=== PATIENT | female | born 1995 | race Hispanic/Latino ===

== ENCOUNTER 2019-12-11 04:30 | Emergency (ER) | payer MEDICAID ==
[2019-12-11] MEDS ORDERED: Lidocaine 1% (PF) 30 ML VIAL ONE (04:42)
[2019-12-11] MEDS ORDERED: Mag-Al 1200 mg/1200 mg/30 ML UDCUP ONE (04:42)
[2019-12-11 05:04] LABS: #Basophils 0.1 thou/uL (0.0-0.2); #Eosinphils 0.1 thou/uL (0.0-0.7); #Lymphocytes 2.1 thou/uL (1.20-3.40); #Monocytes 0.6 thou/uL (0.11-0.59); #Neutrophils 6.9 thou/uL (1.40-6.50); %Basophils 0.8 % (0.0-1.0); %Eosinophils 0.9 % (0.0-10.0); %Lymphocytes 21.7 % (21.0-51.0); %Monocytes 6.4 % (0.0-10.0); %Neutrophils 70.2 % (42.0-75.0); Hemoglobin 11.8 g/dL (12.0-16.0); Mean Corpuscular HGB CONC 31.7 g/dL (32.0-36.0); Mean Platelet Volume 9.7 fL (7.4-10.4); Platelet Count 273 thou/uL (130-400); RBC Distribution Width 17.3 % (11.5-14.5); White Blood Cell (WBC) Count 9.8 thou/uL (4.8-10.8)
[2019-12-11 05:24] LABS: ALT (SGPT) 21 U/L (8-55); AST (SGOT) 31 U/L (5-34); Alkaline Phosphatase 131 U/L (40-110); Anion Gap 16 mmol/L (10-20); BUN (Urea Nitrogen) 17 mg/dL (7.0-18.7); Bilirubin, Total 0.4 mg/dL (0.2-1.2); Calc. Creatinine Clearance 0 mL/min (70-130); Calcium 8.8 mg/dL (7.8-10.44); Carbon Dioxide 21 mmol/L (22-29); Chloride 106 mmol/L (98-107); Estimated GFR-MDRD Greater than 90; Globulin 2.9 g/dL (2.4-3.5); Glucose 106 mg/dL (70-105); Lipase 26 U/L (8-78); Potassium 3.1 mmol/L (3.5-5.1); Protein, Total 6.9 g/dL (6.0-8.3); Sodium 140 mmol/L (136-145)
--- NOTE | 2019-12-11 08:58 | RAD ---
PORTABLE CHEST: HISTORY: Chest pain. FINDINGS: The lungs are clear. No evidence of pneumothorax or infiltrate. Heart and mediastinum unremarkable. IMPRESSION: No acute findings. POS: AGW
--- NOTE | 2019-12-11 11:05 | ULT ---
PRELIMINARY REPORT/[facility]/AFTER HOURS PROCEDURE EXAM: US Abdomen Limited, Right Upper Quadrant. CLINICAL HISTORY: HX: EPIGASTRIC PAIN. TECHNIQUE: Real-time ultrasound of the right upper quadrant with image documentation. COMPARISON: None provided. FINDINGS: LIVER: Unremarkable. GALLBLADDER: Cholelithiasis is noted with gallbladder sludge. No wall thickening. No pericholecystic fluid. COMMON BILE DUCT: No dilation. Measures 4.4 mm PANCREAS: Obscured by overlying bowel gas. RIGHT KIDNEY: Unremarkable. No hydronephrosis. Measures 9.2 cm IMPRESSION: Cholelithiasis and sludge. The patient demonstrated a positive sonographic Hernandez sign however there is no evidence for wall thickening or pericholecystic fluid. ELECTRONICALLY SIGNED BY: Meir Quinn MD Dec 11, 2019 5:50:56 AM CDT This report is intended for review by the ordering physician only, in accordance of law. If you recei ve this report in error, please call [facility] at [phone]. FINAL REPORT RIGHT UPPER QUADRANT ULTRASOUND: FINDINGS: Cholelithiasis and gallbladder sludge is noted. I am in agreement with the preliminary report. POS: AGW
== END 2019-12-11 06:22 | disposition home or self-care (01) ==
LOC: ERS 04:30
DX: O99.63 Diseases of the digestive system complicating the puerperium (principal); K80.20 Calculus of gallbladder without cholecystitis without obstruction
CPT/HCPCS: 36415; 71045; 76705; 80053; 83690; 85025; 93005; J2001